=== PATIENT | male | born 1990 | race Two or more races ===

== ENCOUNTER 2019-01-21 17:08 | Emergency (ER) | payer SELFPAY ==
[2019-01-21 17:20] VITALS: BP 149/115
== END 2019-01-21 19:15 | disposition left against medical advice (07) ==
LOC: ED 17:08
DX: Z53.21 Procedure and treatment not carried out due to patient leaving prior to being seen by health care provider (principal); R51 Headache
CPT/HCPCS: 99281

== ENCOUNTER 2019-06-05 09:44 | Emergency (ER) | payer SELFPAY ==
[2019-06-05 12:15] VITALS: BP 132/86
[2019-06-05 12:35] LABS: Influenza A Molecular Negative (Negative); Influenza B Molecular Negative (Negative)
--- NOTE | 2019-06-05 13:25 | UC ---
FLU HPI - HPI Summary HPI Summary: 28-year-old male comes in with a chief complaint of upper respiratory tract infection symptoms with runny nose sore throat and body aches and feeling ill. Symptoms all started yesterday. He does have rhinorrhea. No complaint of shortness of breath. Has had chills with sinus congestion. Also has had diarrhea for 2-3 days. 2 days ago he got back from a 4 day trip to [facility]. - History of Current Complaint Chief Complaint: UCGeneralIllness Stated Complaint: TRAVEL [facility],WEAKNESS,RESP COMPLAINT Time Seen by Provider: 06/05/19 11:23 Pain Intensity: 0 - Allergy/Home Medications Allergies/Adverse Reactions: Allergies Allergy/AdvReac Type Severity Reaction Status Date / Time No Known Allergies Allergy Verified 06/05/19 11:42 Home Medications: Home Medications NK [No Home Medications Reported] 01/21/19 [History Confirmed 06/05/19] PMH/Surg Hx/FS Hx/Imm Hx Previously Healthy: Yes - Surgical History Surgical History: None - Family History Known Family History: Positive: Non-Contributory - Social History Alcohol Use: None Substance Use Type: Marijuana Smoking Status (MU): Heavy Every Day Tobacco Smoker Type: Cigarettes Amount Used/How Often: 1/3 PPD Review of Systems All Other Systems Reviewed And Are Negative: Yes Constitutional: Positive: Chills, Other - SEE HPI Skin: Positive: Negative Eyes: Positive: Negative ENT: Positive: Nasal Discharge, Sinus Congestion Respiratory: Positive: Negative Cardiovascular: Positive: Negative Gastrointestinal: Positive: Diarrhea Motor: Positive: Negative Neurovascular: Positive: Negative Musculoskeletal: Positive: Negative Neurological/Mental Status: Positive: Negative Psychological: Positive: Negative Is Patient Immunocompromised?: No Physical Exam - Summary Physical Exam Summary: To decrease transmission of Covid 19 patient was interviewed by myself via telemedicine. This does limit the physical exam. Triage Information Reviewed: Yes Appearance: Well-Appearing, No Pain Distress, Well-Nourished Vital Signs: Initial Vital Signs Temp 97.7 F 06/05/19 12:14 Pulse 71 06/05/19 12:14 Resp 18 06/05/19 12:14 BP 132/86 06/05/19 12:14 Pulse Ox 100 06/05/19 12:14 Vital Signs Reviewed: Yes Eye Exam: Normal Eyes: Positive: Conjunctiva Clear ENT: Positive: Nasal congestion Neck: Positive: Supple Respiratory: Positive: No respiratory distress Musculoskeletal: Positive: Strength Intact, ROM Intact Neurological: Positive: Alert Psychological: Positive: Age Appropriate Behavior Flu Course/Dx - Course Course Of Treatment: Strep and flu were negative. With his recent travel and chills he does have a possibility of covert 19 and was checked for that. Is to follow-up with the health department. We discussed treatment with Tylenol [id number] medications and that if he worsened he should get reevaluated in the emergency department. - Differential Dx/Diagnosis Provider Diagnosis: Upper respiratory infection Discharge ED - Sign-Out/Discharge Documenting (check all that apply): Patient Departure All imaging exams completed and their final reports reviewed: No Studies - Discharge Plan Condition: Stable Disposition: HOME Patient Education Materials: Upper Respiratory Infection (ED), Viral Syndrome ( ED) Forms: COVID-19 Tested & Isolation, *Work Release Referrals: [facility] [Outside] [facility] [Outside] Additional Instructions: PLACE YOURSELF IN HOME ISOLATION. [facility] DEPARTMENT WILL CONTACT YOU. CONTACT THEM TOMORROW IF YOU HAVE NOT HEARD FROM THEM. FOLLOW UP WITH YOUR DOCTOR IF NOT COMPLETELY IMPROVED. GO TO THE EMERGENCY DEPARTMENT IF NOT IMPROVED OR WORSE OR ANY QUESTIONS OR CONCERNS. - Billing Disposition and Condition Condition: STABLE Disposition: Home
== END 2019-06-05 14:40 | disposition home or self-care (01) ==
LOC: UCEAST 09:44
DX: J06.9 Acute upper respiratory infection, unspecified (principal); Z20.828 Contact with and (suspected) exposure to other viral communicable diseases; F17.210 Nicotine dependence, cigarettes, uncomplicated
CPT/HCPCS: 87651; 99211; G0463; U0002